=== PATIENT | female | born 1950 | race Two or more races ===

== ENCOUNTER 2019-10-12 19:02 | Emergency (ER) | payer OTHER ==
[2019-10-12 19:08] VITALS: BP 122/56; PULSE 78; TEMP 98.1; BMI 20.9
--- NOTE | 2019-10-12 20:59 | PDOC ---
History of Present Illness - General Chief Complaint: Respiratory Stated Complaint: COUGH Time Seen by Provider: 10/12/19 20:20 History Source: Patient Exam Limitations: Language Barrier - History of Present Illness Initial Comments: 10/12/19 20:43 Patient is a 69 year old female with h/o bronchitis, lung tumor nonmalignant dx 1.5 year, lung bx, c/o cough, fever, chest pain, HANSON, decreased appetite x 3 days. Today cough is more frequent white sputum, was given pill (XL3) at home for cold at 2pm. Fever is subjective, she was hot and colds today. Has throat pain, HANSON and a reproducible chest pain is with coughing 07/29. Is visiting from [place] arrived 09/28/19. History obtained with [email or web address]. PMD: in [place] PMHX: as above PSOCHX: neg etoh, cig, drug ALL: NKDA GENERAL/CONSTITUTIONAL: [No fever or chills. No weakness. No weight change.] HEAD, EYES, EARS, NOSE AND THROAT: [No change in vision. No ear pain or discharge. No sore throat.] CARDIOVASCULAR: [No chest pain or shortness of breath.] RESPIRATORY: [(+) cough, wheezing, or hemoptysis.] GASTROINTESTINAL: [No nausea, vomiting, diarrhea or constipation. No rectal bleeding.] GENITOURINARY: [No dysuria, frequency, or change in urination.] MUSCULOSKELETAL: [No joint or muscle swelling or pain. No neck or back pain.] SKIN AND BREASTS: [No rash or easy bruising.] NEUROLOGIC: [(+) headache, vertigo, loss of consciousness, or loss of sensation. ] PSYCHIATRIC: [No depression or anxiety.] ENDOCRINE: [No increased thirst. No abnormal weight change.] HEMATOLOGIC/LYMPHATIC: [No anemia, easy bleeding, or history of blood clots.] ALLERGIC/IMMUNOLOGIC: [No hives or skin allergy. No latex allergy.] GENERAL: [The patient is awake, alert, and fully oriented, in no acute distress. ] HEAD: [Normal with no signs of trauma.] EYES: [Pupils equal, round and reactive to light, extraocular movements intact, sclera anicteric, conjunctiva clear.] ENT: [Ears normal, nares patent, oropharynx clear without exudates. Moist mucous membranes.] NECK: [Normal range of motion, supple without lymphadenopathy, JVD, or masses.] LUNGS: [Breath sounds equal, clear to auscultation bilaterally. No wheezes, and no crackles, tenderness lower chest left.] HEART: [Regular rate and rhythm, normal S1 and S2 without murmur, rub.] ABDOMEN: [Soft, nontender, normoactive bowel sounds. No guarding, no rebound. No masses.] EXTREMITIES: [Normal range of motion, no edema. No clubbing or cyanosis. No cords, erythema, or tenderness.] NEUROLOGICAL: [Cranial nerves II through XII grossly intact. Normal speech, normal gait.] PSYCH: [Normal mood, normal affect.] SKIN: [Warm, Dry, normal turgor, no rashes or lesions noted.] Past History - Past Medical History Allergies/Adverse Reactions: Allergies Allergy/AdvReac Type Severity Reaction Status Date / Time No Known Allergies Allergy Verified 10/12/19 19:08 Home Medications: Ambulatory Orders Albuterol Sulfate Inhaler - [Ventolin HFA Inhaler -] 2 inh PO Q4H #1 inh Loratadine [Claritin -] 10 mg PO DAILY #10 tablet 10/12/19 Anemia: Yes COPD: No - Psycho Social/Smoking Cessation Hx Smoking History: Never smoked *Physical Exam - Vital Signs Last Vital Signs Temp Pulse Resp BP Pulse Ox 98.1 F 78 18 122/56 L 98 10/12/19 19:04 10/12/19 19:04 10/12/19 19:04 10/12/19 19:04 10/12/19 19:04 Medical Decision Making - Medical Decision Making 10/12/19 20:43 Patient is a 69 year old female with h/o bronchitis, lung tumor nonmalignant dx 1.5 year, lung bx, c/o cough, fever, chest pain, HANSON, decreased appetite x 3 days. Today cough is more frequent white sputum, was given pill (XL3) at home for cold at 2pm. Fever is subjective, she was hot and colds today. Has throat pain, HANSON and a reproducible chest pain is with coughing 07/29. Is visiting from [place] arrived 09/28/19. Symptoms consistent with URI Chest x-ray Neb treatments Discharge when stable Chest x-ray negative for acute infiltrates, dime size density noted in the left upper chest. Patient feels improved after treatment, no wheezing, no stridor. I discussed the physical exam findings, ancillary test results and final diagnoses with the patient. I answered all of the patient's questions. The patient was satisfied with the care received and felt comfortable with the discharge plan and treatment plan. The Patient agrees to follow up with the primary care physician within 24-72 hours. Discharge - Discharge Information Problems reviewed: Yes Clinical Impression/Diagnosis: Upper respiratory infection Qualifiers: URI type: unspecified URI Qualified Code(s): J06.9 - Acute upper respiratory infection, unspecified Condition: Stable Disposition: HOME - Additional Discharge Information Prescriptions: Albuterol Sulfate Inhaler - [Ventolin HFA Inhaler -] 2 inh PO Q4H #1 inh Loratadine [Claritin -] 10 mg PO DAILY #10 tablet - Follow up/Referral - Patient Discharge Instructions Patient Printed Discharge Instructions: DI for Viral Upper Respiratory Infection -- Adult Additional Instructions: Your Discharge Instructions: You must call primary care physician within 24 hours to arrange follow-up. Return to the Emergency Department with any new, persistent or worsening symptoms, for fever, chills, SOB, dizziness or any other concerning changes that may occur. You may use [id number] cough medicines as needed. Humidified air as needed. - Post Discharge Activity
[2019-10-12] MEDS ORDERED: ALBUTEROL SO4 2.5/IPRATROPIUM 0.5 INH SOL 3 ML VIAL.NEB. NEB SCH (21:45)
[2019-10-12] MEDS ORDERED: ALBUTEROL SO4 2.5/IPRATROPIUM 0.5 INH SOL 3 ML VIAL.NEB. NEB ONE (22:09)
== END 2019-10-13 00:22 | disposition home or self-care (01) ==
LOC: JER 19:02
PROC: 3E0F7GC Introduction of Other Therapeutic Substance into Respiratory Tract, Via Natural or Artificial Opening (ICD-10-PCS; principal; 2019-10-12)
DX: J06.9 Acute upper respiratory infection, unspecified (principal); D14.30 Benign neoplasm of unspecified bronchus and lung
CPT/HCPCS: 71046-TC-FY; 99281-25